=== PATIENT | male | born 1980 | race Two or more races ===

== ENCOUNTER 2019-07-09 23:51 | Emergency (ER) | payer OTHER ==
[~2019-07-09] VITALS: Ht 188 cm; Wt 99.8 kg
[2019-07-10] MEDS ORDERED: NAPROXEN SODIU550 MG PO (00:57)
[2019-07-10] MEDS ORDERED: AMOX1TAB5 PO (00:57)
[2019-07-10] MEDS ORDERED: PEPCID40 MG PO (06:36)
[2019-07-10] MEDS ORDERED: ZOFRAN4 MG PO (06:36)
== END 2019-07-10 06:47 | disposition home or self-care (01) ==
LOC: ER 23:51
DX: R10.13 Epigastric pain (principal)